=== PATIENT | male | born 1995 | race Two or more races ===

== ENCOUNTER 2024-10-03 03:03 | Inpatient (IN) | payer MEDICAID, OTHER ==
[~2024-10-03] VITALS: Ht 185.4 cm; Wt 124.7 kg
--- NOTE | 2024-10-03 03:18 | ED.PDOC ---
General HPI Comments PATIENT C/O RECTAL PAIN/SWELLING. STATES HE THINKS HE HAS A HEMORRHOID. HAS BEEN CONSTIPATED, WAS PUSHING ON THURSDAY AND FELT IT "POP" OUT. DENIES ANY BLEEDING. HAS BEEN USING PREPARATION H WITHOUT IMPROVEMENT OF SYMPTOMS. DENIES RECTAL BLEEDING, FEVER, CHILLS, NAUSEA, VOMITING, CHEST PAIN, SHORTNESS OF BREATH OR DIZZINESS. Time Seen by MD: 03:10 Reviewed notes: Nurses Notes, Medications, Allergies Allergies: Coded Allergies: NO KNOWN ALLERGIES (Unverified , 10/03/24) Information Source: Patient Past Medical History PAST MEDICAL HISTORY: Denies Surgical History: Denies all surgeries Family History Family History: Reviewed,noncontributory to illness Social History Smoker: Non-Smoker Alcohol: Denies ETOH Use Drugs: Denies Drug Use Constitutional: denies: chills, diaphoresis, fatigue, fever, malaise, sweats, weakness, others EENTM: denies: blurred vision, double vision, ear bleeding, ear discharge, ear drainage, ear pain, ear ringing, eye pain, eye redness, hearing loss, mouth pain, mouth swelling, nasal discharge, nose bleeding, nose congestion, nose pain, photophobia, tearing, throat pain, throat swelling, voice changes, others Respiratory: denies: cough, hemoptysis, orthopnea, SOB at rest, shortness of breath, SOB with excertion, stridor, wheezing, others Cardiovascular: denies: chest pain, dizzy spells, diaphoresis, Dyspnea on exertion, edema, irregular heart beat, left arm pain, lightheadedness, palpitations, PND, syncope, others Gastrointestinal: reports: constipated, rectal pain; denies: abdomen distended, abdominal pain, blood streaked bowels, diarrhea, dysphagia, difficulty swallowing, hematemesis, melena, nausea, poor appetite, poor fluid intake, rectal bleeding, vomiting, others Genitourinary: denies: burning, dysuria, flank pain, frequency, hematuria, incontinence, penile discharge, penile sore, pain, testicle pain, testicle swelling, urgency, others Neurological: denies: dizziness, fainting, headache, left sided numbness, left sided weakness, numbness, paresthesia, pre-existing deficit, right sided numbness, right sided weakness, seizure, speech problems, tingling, tremors, weakness, others Musculoskeletal: denies: back pain, gout, joint pain, joint swelling, muscle pain, muscle stiffness, neck pain, others Integumetry: denies: bruises, change in color, change in hair/nails, dryness, laceration, lesions, lumps, rash, wounds, others Allergic/Immunocompromised: denies: Difficulty Healing, Frequent Infections, Hives, Itching, others Hematologic/Lymphatic: denies: anemia, blood clots, easy bleeding, easy bruising, swollen glands, others Endocrine: denies: excessive hunger, excessive sweating, excessive thirst, excessive urination, flushing, intolerance to cold, intolerance to heat, unexplained weight gain, unexplained weight loss, others Psychiatric: denies: anxiety, bipolar disorder, depression, hopeless, panic disorder, schizophrenia, sleepless, suicidal, others Physical Exam General Appearance: No Apparent Distress, Normal HEENT: Pharynx Normal Neck: Full Range of Motion, Non-Tender Respiratory: Lungs Clear, No Respiratory Distress, Normal Breath Sounds Cardiovascular: No Murmur, Normal Peripheral Pulses, Regular Rate/Rhythm Breast Exam: Deferred Gastrointestinal: No Organomegaly, Non Tender, No Pulsatile Mass, Normal Bowel Sounds, Soft Genitalia: Deferred Pelvic: Deferred Rectal: Tenderness (MODERATE TENDERNESS OVER ABSCESS NO NOTED DRAINAGE OR BLEEDING TRACE ERYTHEMA WITHOUT STREAKING.) Extremities: No calf tenderness, Normal capillary refill, Normal inspection, Normal range of motion, Non-tender, No pedal edema Musculoskeletal : Apperance: Normal Neurologic: Alert, machinery mover II-XII nml as Tested, No Motor Deficits, Normal Affect, Normal Mood, No Sensory Deficits Cerebellar Function: Normal Reflexes: Normal Skin: Dry, Normal Color, Warm Lymphatic: No Adenopathy Was a procedure done? Was a procedure done?: No Differential Diagnosis Kidney stone (Female): N/A X-Ray, Labs, Meds, VS Vital Signs Date Time Temp Pulse Resp B/P (MAP) Pulse Ox O2 Delivery O2 Flow Rate FiO2 10/03/24 05:38 98.9 72 16 117/69 (85) 97 98.9 10/03/24 05:31 72 16 117/69 10/03/24 03:15 99.1 97 18 119/91 (100) 100 99.1 Lab Test 10/03/24 04:48 Range/Units White Blood Count 14.4 H 4.4-10.8 10^3/uL Red Blood Count 5.12 4.5-5.90 10^6/uL Hemoglobin 14.5 13.5-17.5 g/dL Hematocrit 41.7 41.0-53.0 % Mean Corpuscular Volume 81.5 80.0-100.0 fL Mean Corpuscular Hemoglobin 28.4 28.0-32.0 pg Mean Corpuscular Hemoglobin Concent 34.9 32.0-36.0 g/dL Red Cell Distribution Width 14.0 11.8-14.3 % Platelet Count 196 140-450 10^3/uL Mean Platelet Volume 8.0 6.9-10.8 fL Neutrophils (%) (Auto) 78.5 37.0-80.0 % Lymphocytes (%) (Auto) 13.3 10.0-50.0 % Monocytes (%) (Auto) 7.2 0.0-12.0 % Eosinophils (%) (Auto) 0.5 0.0-7.0 % Basophils (%) (Auto) 0.5 0.0-2.0 % Neutrophils # (Auto) 11.3 H 1.6-8.6 10 ^3/uL Lymphocytes # (Auto) 1.9 0.4-5.4 10 ^3/uL Monocytes # (Auto) 1.0 0-1.3 10 ^3/uL Eosinophils # (Auto) 0.1 0-0.8 10 ^3/uL Basophils # (Auto) 0.1 0-0.2 10 ^3/uL Nucleated Red Blood Cells 0.0 % Sodium Level 138 136-145 mmol/L Potassium Level 3.7 3.5-5.1 mmol/L Chloride Level 106 98-107 mmol/L Carbon Dioxide Level 25 20-31 mmol/L Anion Gap 7 5-15 Blood Urea Nitrogen 11 9-23 mg/dL Creatinine 1.02 0.700-1.30 mg/dL Glomerular Filtration Rate Calc 101 >90 mL/min BUN/Creatinine Ratio 10.8 10.0-20.0 Serum Glucose 107 H 74-106 mg/dL Calcium Level 9.3 8.7-10.4 mg/dL Total Bilirubin 0.7 0.2-1.0 mg/dL Aspartate Amino Transferase (AST) 19 13-40 U/L Alanine Aminotransferase (ALT) Pending Alkaline Phosphatase 72 46-116 U/L Total Protein 7.2 5.7-8.2 g/dL Albumin 4.6 3.2-4.8 g/dL Current Medications Medications (Trade) Dose Ordered Sig/Kaylah Route Start Time Stop Time Status Last Admin Morphine Sulfate 4 mg ONCE ONCE IV 10/03/24 05:30 10/03/24 05:31 DC 10/03/24 05:31 Metronidazole 100 ml @ 100 mls/hr ONCE ONCE IV 10/03/24 05:30 10/03/24 06:29 10/03/24 05:30 X-Ray, Labs, Meds, VS Comment IMAGING: /////CT ABD/PELVIS IMPRESSION: 1. Limited evaluation without intravenous and enteric contrast. Within this limitation no acute process identified. If there is continued concern for rectal mass or pathology, colonoscopy is strongly recommended. 2. Increased number of retroperitoneal and bilateral inguinal lymph nodes with a slightly enlarged left inguinal lymph node. Etiology is unclear and these may be reactive in etiology. Metastatic adenopathy not entirely excluded. 3. Hepatic steatosis. LABS: CBC WHITE COUNT [id number] MP WITHIN NORMAL LIMITS PENDING UA MEDICATIONS: MORPHINE 4 MG IV PUSH CIPRO 400 MG IV PIGGYBACK FLAGYL 500 MG IV PIGGYBACK PLAN: PLACED FOR HOSPITALIST FOR ADMISSION ORDERS FOR PAIN MANAGEMENT, LEUKOCYTOSIS, RECTAL ABSCESS, RETROPERITONEAL ADENOPATHY. GI CONSULT INCISION AND DRAINAGE, AND FURTHER GI WORKUP. Time of 1ST Reevaluation: 03:10 Reevaluation 1ST: Unchanged Time of 2ND Reevaluation: 05:16 Reevaluation 2ND: Unchanged Patient Education/Counseling: Diagnosis, Treatment, Prognosis, Need For Follow Up Family Education/Counseling: No Family Present SEPSIS Sepsis Screen Physician Orders Ct Ab Pel Wo Con-No Oral Or Iv (10/03/24 03:25) Comprehensive Metabolic Panel (10/03/24 05:09) Urinalysis (10/03/24 05:09) Ciprofloxacin 400mg/200ml (Cipro Iv) (10/03/24 05:30) Metronidazole 500mg/100ml (Flagyl 500mg/ (10/03/24 05:30) Sodium Chloride 0.9% (10/03/24 05:30) Vital Signs Date Time Temp Pulse Resp B/P (MAP) Pulse Ox O2 Delivery O2 Flow Rate FiO2 10/03/24 05:38 98.9 72 16 117/69 (85) 97 98.9 10/03/24 05:31 72 16 117/69 10/03/24 03:15 99.1 97 18 119/91 (100) 100 99.1 Laboratory Tests Test 10/03/24 04:48 White Blood Count 14.4 10^3/uL (4.4-10.8) H Medications Medications Dose Ordered Sig/Kaylah Route Start Time Stop Time Status Last Admin Dose Admin Metronidazole 100 ml @ 100 mls/hr ONCE ONCE IV 10/03/24 05:30 10/03/24 06:29 10/03/24 05:30 Morphine Sulfate 4 mg ONCE ONCE IV 10/03/24 05:30 10/03/24 05:31 DC 10/03/24 05:31 Departure 1 Departure Time of Disposition: 05:12 Impression: Primary Impression: Perineal abscess Additional Impressions: Leukocytosis Qualified Codes: D72.829 - Elevated white blood cell count, unspecified Retroperitoneal lymphadenopathy Disposition: ADMITTED INPATIENT Condition: Stable Discharged With: Self Critical Care Note Critical Care Time?: No Stability Stability form required: RUBEN Mendiola Oct 03, 2024 03:17
[2024-10-03] MEDS ORDERED: HYDROCORTISONE ACET 25 MG RECTAL SUPP PR ONE (03:30)
[2024-10-03] MEDS ORDERED: cefTRIAXone SOD 1,000 MG VL IM ONE (03:30)
[2024-10-03] MEDS ORDERED: KETOROLAC TROMETH 60MG/2ML VIAL IM ONE (03:30)
--- NOTE | 2024-10-03 04:24 | DVH ---
Exam: CT CT AB PEL WO CON-NO ORAL OR IV History: RECTAL PAIN/MASS Comparison Study: None Technique: Multidetector spiral CT of the abdomen and pelvis was performed from lung bases to pubic s ymphysis. Imaging was performed without intravenous contrast. Coronal and sagittal multiplanar reform ats were obtained from the axial data set by the technologist. Radiation Dose : 1. Abdomen/Pelvis: CTDIvol 26.47 mGy, DLP 1482.48 mGy*cm. Findings: Evaluation of vasculature and solid organs is limited due to lack of intravenous contrast use. Lung Bases: Lung bases are clear. Visualized portions of the heart and pericardium are unremarkable. Liver: The liver is normal in size. No focal lesions. Diffusely hypoattenuating liver parenchyma con sistent with hepatic steatosis. Gallbladder and Biliary Tree: The gallbladder is unremarkable. No intrahepatic or extrahepatic biliar y ductal dilatation. Spleen: Unremarkable Pancreas: The pancreas is grossly unremarkable. Adrenal Glands: Unremarkable Kidneys: Kidneys are unremarkable without calculi or hydronephrosis. GI tract: The stomach is grossly normal in appearance. No evidence of small bowel wall thickening or abnormal dilatation to suggest bowel obstruction. The colon appears to be unremarkable as assessed on unenhanced CT. The appendix is visualized and is normal. Peritoneum/mesentery/retroperitoneum. No evidence of free intraperitoneal air. No ascites. Lymph node s: Subcentimeter retroperitoneal lymph nodes. Mildly prominent left inguinal lymph node measuring 10 mm in short axis. Abdominal Wall: Unremarkable. Vasculature: The visualized abdominal aorta is normal in size and caliber. Evaluation of abdominal a nd pelvic vessels is limited due to lack of intravenous contrast. Urinary Bladder: Grossly unremarkable for degree of distention. Pelvic Organs: Unremarkable. Musculoskeletal: No aggressive focal bony lesions, acute fractures or dislocation. IMPRESSION: 1. Limited evaluation without intravenous and enteric contrast. Within this limitation no acute proc ess identified. If there is continued concern for rectal mass or pathology, colonoscopy is strongly recommended. 2. Increased number of retroperitoneal and bilateral inguinal lymph nodes with a slightly enlarged le ft inguinal lymph node. Etiology is unclear and these may be reactive in etiology. Metastatic adenop athy not entirely excluded. 3. Hepatic steatosis.
[2024-10-03 04:59] LABS: Hematocrit 41.7 % (41.0-53.0); Hemoglobin 14.5 g/dL (13.5-17.5); Mean Corpuscular Hemoglobin 28.4 pg (28.0-32.0); Mean Corpuscular Volume 81.5 fL (80.0-100.0); Nucleated Red Blood Cells % 0.0 %
[2024-10-03 05:25] LABS: Albumin 4.6 g/dL (3.2-4.8); Alkaline Phosphatase 72 U/L (46-116); Anion Gap 7 (5-15); BUN/Creatinine Ratio 10.8 (10.0-20.0); Blood Urea Nitrogen 11 mg/dL (9-23); Calcium 9.3 mg/dL (8.7-10.4); Carbon Dioxide 25 mmol/L (20-31); Chloride 106 mmol/L (98-107); Potassium 3.7 mmol/L (3.5-5.1); Sodium 138 mmol/L (136-145); Total Protein 7.2 g/dL (5.7-8.2)
[2024-10-03 05:26] LABS: Bilirubin, Total 0.7 mg/dL (0.2-1.0)
[2024-10-03 05:28] LABS: Glucose 107 mg/dL (74-106)
[2024-10-03] MEDS: SODIUM CHLORIDE 0.9% 1,000 ML IV ONE (05:30)
[2024-10-03] MEDS: MORPHINE SULFATE 4 MG/ML SYR/VIAL IV ONE (05:31)
[2024-10-03 05:43] VITALS: PULSE 72; RESP 16; O2SAT 97
[2024-10-03 05:55] LABS: Alanine Aminotransferase 24 U/L (7-40)
[2024-10-03] MEDS: CIPROFLOXACIN 400MG/200ML 200 ML IV ONE (06:16)
[2024-10-03] MEDS ORDERED: ACETAMINOPHEN 325 MG TAB PO PRN (09:00)
[2024-10-03] MEDS ORDERED: DOCUSATE SOD 100 MG CAP PO PRN (09:00)
[2024-10-03] MEDS ORDERED: ONDANSETRON HCL 4 MG/2 ML VIAL IV PRN (09:00)
[2024-10-03] MEDS ORDERED: HYDROcodone-ACET 5/325MG TAB PO PRN (09:00)
[2024-10-03 09:17] VITALS: BP 119/64; PULSE 56; RESP 16; TEMP 98.2; O2SAT 96
--- NOTE | 2024-10-03 09:34 | DVHHP2 ---
History of Present Illness Reason for Visit: rectal pain History of Present Illness Maurice Guthrie Jr is a 29-year-old male with no significant past medial history who came to the hospital due to rectal pain. Patient states he has been constipated and straining to go to the bathroom. A couple days ago he heard a pop, it was painful, and thought he had a hemorrhoid. He was treating it with over the counter cream without any improvement so he came to the hospital. On exam the ER provider diagnosed him with a rectal abscess, not hemorrhoid. On my exam he states that he thinks it just opened up. States he can feel something draining. On exam the abscess has opened and is draining. He states he pain has improved now as well. Past Surgical History: Other (cyst removal) Smoke: <1 pack per day ALCOHOL: occassional Drugs: Marijuana Lives: with Family Domestic Violence: Neg Review of Systems Constitutional: No: Fever, Chills, Sweats, Weakness, Malaise, Other Eyes: No: Pain, Vision change, Conjunctivae inflammation, Eyelid inflammation, Other, Redness ENT: No: Ear pain, Ear discharge, Nose pain, Nose discharge, Nose congestion, Mouth pain, Mouth swelling, Throat pain, Throat swelling, Other Respiratory: No: Cough, Dry, Shortness of breath, SOB with excertion, Wheezing, Hemoptysis, Pleuritic Pain, Sputum, Wheezing, Other Cardiovascular: No: Chest Pain, Palpitations, Orthopnea, Paroxysmal Noc. Dyspnea, Edema, Lt Headedness, Other Gastrointestinal: No: Nausea, Vomiting, Abdominal Pain, Diarrhea, Constipation, Melena, Hematochezia, Other Genitourinary: No Dysuria, No Frequency, No Incontinence, No Hematuria, No Retention, No Other Musculoskeletal: No: other, neck pain, shoulder pain, arm pain, back pain, hand pain, leg pain, foot pain Skin: Other (Perineal abscess, rectal pain); No: Rash, Lesions, Jaundice, Bruising Neurological: No: Weakness, Numbness, Incoordination, Change in speech, Confusion, Seizures, Other Allergies: Coded Allergies: NO KNOWN ALLERGIES (Unverified , 10/03/24) Exam Vital Signs Vital Signs Date Time Temp Pulse Resp B/P (MAP) Pulse Ox O2 Delivery O2 Flow Rate FiO2 10/03/24 08:39 98.1 71 18 132/80 (97) 98 98.1 10/03/24 05:43 Room Air* 0 21 General Appearance: Alert, Oriented X3, Cooperative, mild distress HEENT: Atraumatic, PERRLA, Mucous membr. moist/pink Respiratory: Clear to auscultation, Normal air movement Cardiovascular: Regular rate, Normal S1, Normal S2 Abdominal: Normal bowel sounds, Soft, No tenderness Extremities: No clubbing, No cyanosis, No edema, Normal pulses Skin: No rashes, No breakdown, No significant lesion Neuro: Normal gait, Normal speech, Strength at 5/5 X4 ext, Normal tone Psych/Mental Status: Mental status NL, Mood NL Labs/Xrays Labs Test 10/03/24 04:48 Range/Units White Blood Count 14.4 H 4.4-10.8 10^3/uL Red Blood Count 5.12 4.5-5.90 10^6/uL Hemoglobin 14.5 13.5-17.5 g/dL Hematocrit 41.7 41.0-53.0 % Mean Corpuscular Volume 81.5 80.0-100.0 fL Mean Corpuscular Hemoglobin 28.4 28.0-32.0 pg Mean Corpuscular Hemoglobin Concent 34.9 32.0-36.0 g/dL Red Cell Distribution Width 14.0 11.8-14.3 % Platelet Count 196 140-450 10^3/uL Mean Platelet Volume 8.0 6.9-10.8 fL Neutrophils (%) (Auto) 78.5 37.0-80.0 % Lymphocytes (%) (Auto) 13.3 10.0-50.0 % Monocytes (%) (Auto) 7.2 0.0-12.0 % Eosinophils (%) (Auto) 0.5 0.0-7.0 % Basophils (%) (Auto) 0.5 0.0-2.0 % Neutrophils # (Auto) 11.3 H 1.6-8.6 10 ^3/uL Lymphocytes # (Auto) 1.9 0.4-5.4 10 ^3/uL Monocytes # (Auto) 1.0 0-1.3 10 ^3/uL Eosinophils # (Auto) 0.1 0-0.8 10 ^3/uL Basophils # (Auto) 0.1 0-0.2 10 ^3/uL Nucleated Red Blood Cells 0.0 % Sodium Level 138 136-145 mmol/L Potassium Level 3.7 3.5-5.1 mmol/L Chloride Level 106 98-107 mmol/L Carbon Dioxide Level 25 20-31 mmol/L Anion Gap 7 5-15 Blood Urea Nitrogen 11 9-23 mg/dL Creatinine 1.02 0.700-1.30 mg/dL Glomerular Filtration Rate Calc 101 >90 mL/min BUN/Creatinine Ratio 10.8 10.0-20.0 Serum Glucose 107 H 74-106 mg/dL Calcium Level 9.3 8.7-10.4 mg/dL Total Bilirubin 0.7 0.2-1.0 mg/dL Aspartate Amino Transferase (AST) 19 13-40 U/L Alanine Aminotransferase (ALT) 24 7-40 U/L Alkaline Phosphatase 72 46-116 U/L Total Protein 7.2 5.7-8.2 g/dL Albumin 4.6 3.2-4.8 g/dL Exam: CT CT AB PEL WO CON-NO ORAL OR IV Findings: Evaluation of vasculature and solid organs is limited due to lack of intravenous contrast use. Lung Bases: Lung bases are clear. Visualized portions of the heart and pericardium are unremarkable. Liver: The liver is normal in size. No focal lesions. Diffusely hypoattenuating liver parenchyma consistent with hepatic steatosis. Gallbladder and Biliary Tree: The gallbladder is unremarkable. No intrahepatic or extrahepatic biliary ductal dilatation. Spleen: Unremarkable Pancreas: The pancreas is grossly unremarkable. Adrenal Glands: Unremarkable Kidneys: Kidneys are unremarkable without calculi or hydronephrosis. GI tract: The stomach is grossly normal in appearance. No evidence of small myles wel wall thickening or abnormal dilatation to suggest bowel obstruction. The colon appears to be unremarkable as assessed on unenhanced CT. The appendix is visualized and is normal. Peritoneum/mesentery/retroperitoneum. No evidence of free intraperitoneal air. No ascites. Lymph nodes: Subcentimeter retroperitoneal lymph nodes. Mildly prominent left inguinal lymph node measuring 10 mm in short axis. Abdominal Wall: Unremarkable. Vasculature: The visualized abdominal aorta is normal in size and caliber. E valuation of abdominal and pelvic vessels is limited due to lack of intravenous contrast. Urinary Bladder: Grossly unremarkable for degree of distention. Pelvic Organs: Unremarkable. Musculoskeletal: No aggressive focal bony lesions, acute fractures or dislocation. IMPRESSION: 1. Limited evaluation without intravenous and enteric contrast. Within this limitation no acute process identified. If there is continued concern for rectal mass or pathology, colonoscopy is strongly recommended. 2. Increased number of retroperitoneal and bilateral inguinal lymph nodes with a slightly enlarged left inguinal lymph node. Etiology is unclear and these may be reactive in etiology. Metastatic adenopathy not entirely excluded. 3. Hepatic steatosis. Assessment/Plan Assessment/Plan Assessment: Perineal abscess, Leukocytosis, Plan: Admit to Med-Surg, IV hydration, IV antibiotics, Consider surgical consult if symptoms persist, UA, Plan discussed with: Patient My Orders Orders - SOFIA RAHMAN Procedure Category Date Status Time Admit ADMIT 10/03/24 Transmitted 08:56 Code Status CODE 10/03/24 Transmitted 08:56 Hydrocodone-Acet PHA 10/03/24 Transmitted 5/325mg Tab ([place] 09:00 Ondansetron Hcl PHA 10/03/24 Transmitted (Zofran) 09:00 Docusate Sodium PHA 10/03/24 Transmitted Capsule ([place] 09:00 Complete Blood Count LAB 10/04/24 Verified 04:00 Comprehensive LAB 10/04/24 Verified Metabolic Panel 04:00 Condition: Serious ALBINA 10/03/24 Transmitted 08:56 Acetaminophen Tablet PHA 10/03/24 Transmitted (Tylenol Tablet) 09:00 Metronidazole Ivpb PHA 10/03/24 Transmitted Flagyl 14:00 Clindamycin Ivpb PHA 10/03/24 Verified Cleocin 14:00 Date of Service: Oct 03, 2024 Billing Provider: SOFIA RAHMAN Common Visit Codes: [id number] INP/OBS CARE (MOD) SOFIA RAHMAN Oct 03, 2024 09:34
[2024-10-03 13:00] VITALS: BP 95/49; PULSE 54; RESP 16; TEMP 97.9; O2SAT 99
[2024-10-03] MEDS ORDERED: CLINDAMYCIN 600MG IV 50 ML IV SCH (14:00)
[2024-10-03] MEDS ORDERED: CIPROFLOXACIN 400MG/200ML 200 ML IV SCH (18:00)
== END 2024-10-03 18:09 | disposition left against medical advice (07) | DRG 383 ==
LOC: ER 03:03 → OVERFLOW 08:56
PROVIDERS: ADMIT Nurse Practitioner Family; ATTEND Nurse Practitioner Family
DX: L02.215 Cutaneous abscess of perineum (principal); D72.829 Elevated white blood cell count, unspecified; K59.00 Constipation, unspecified; R59.0 Localized enlarged lymph nodes; Z87.891 Personal history of nicotine dependence; Z53.21 Procedure and treatment not carried out due to patient leaving prior to being seen by health care provider
CPT/HCPCS: 36415; 74176; 80053; 85025; 96365; 96375; G0378; J3490

== ENCOUNTER 2024-12-26 02:18 | Emergency (ER) | payer MEDICAID ==
[~2024-12-26] VITALS: Ht 185.4 cm; Wt 124.1 kg
[2024-12-26 02:20] VITALS: BP 143/84; PULSE 68; RESP 14; TEMP 98.8; O2SAT 99
--- NOTE | 2024-12-26 02:54 | ED.PDOC ---
Eye-HPI HPI Comments 29 y/o obese M presents with c/c of right upper tooth pain for 1x day. Denies fever, chills, nausea, vomiting, difficulty breathing or difficulty swallowing or throat swelling. Chief Complaint: Tooth Pain Time Seen by MD: 02:50 Reviewed Notes: Nurses Notes, Medications, Allergies Allergies: Coded Allergies: NO KNOWN ALLERGIES (Unverified , 10/03/24) Information Source: Patient Mode of Arrival: Ambulatory Timing: Days Duration: Since onset Prehospital treatment: None Quality: Pain Past Medical History PAST MEDICAL HISTORY: Denies Surgical History: Denies all surgeries Family History Family History: Reviewed,noncontributory to illness Social History Smoker: Non-Smoker Alcohol: Denies ETOH Use Drugs: Denies Drug Use Lives In: Home All Other Systems: Reviewed and Negative (Comprehensive review of systems are negative unless stated in HPI) Physical Exam General Appearance: No Apparent Distress, Normal HEENT: Pharynx Normal, TMs Normal, Other (moderate decay tooth # 18 w/right cheek edema) Neck: Full Range of Motion, Non-Tender Respiratory: Lungs Clear, No Respiratory Distress, Normal Breath Sounds Cardiovascular: JVD, No Edema, No Murmur, Normal Peripheral Pulses, Regular Rate/Rhythm Breast Exam: Deferred Gastrointestinal: Non Tender, Soft Genitalia: Deferred Pelvic: Deferred Rectal: Deferred Extremities: Normal capillary refill, Normal range of motion Musculoskeletal : Apperance: Normal Neurologic: Alert, No Motor Deficits, Normal Affect, Normal Mood, No Sensory Deficits Cerebellar Function: Normal Reflexes: NOT DONE Skin: Dry, Normal Color, Warm Lymphatic: No Adenopathy Was a procedure done? Was a procedure done?: No EENT DIFF Eye: N/A Ear: N/A Nose: N/A Mouth: N/A Sore Throat: Pharyngitis, Streptococcal, Viral Pharyngitis, Other (dental mishel, dental abscess) X-Ray, Labs, Meds, VS Vital Signs Date Time Temp Pulse Resp B/P (MAP) Pulse Ox O2 Delivery O2 Flow Rate FiO2 12/26/24 02:20 98.8 68 14 143/84 99 98.8 X-Ray, Labs, Meds, VS Comment Patient given Toradol 60 mg IM, Rocephin 1 g IM, [place] 5 mg p.o. and Hurricaine spray. Script trial of antibiotics and anti-inflammatory advised to take medication as prescribed side effects discussed. Advised to follow up with dental for resolution. ER return precautions given patient indicates understanding and agrees with discharge plan of care Time of 1ST Reevaluation: 03:10 Reevaluation 1ST: Unchanged Time of 2ND Reevaluation: 03:08 Reevaluation 2ND: Improved Patient Education/Counseling: Treatment, Need For Follow Up Family Education/Counseling: No Family Present SEPSIS Sepsis Screen Date sepsis recognized/suspect: Dec 26, 2024 Time Sepsis recognized/suspect: 219 Recent Procedure: No On Antibiotic Therapy: No Respiratory Rate >20: No Heart Rate >90: No Temp<36 C (96.8 F) or >38.3 C: No SBP <90 or MAP <65 mmHG: No New Acute Mental Status Change: No Is the patient on CPAP, BIPAP,: No Vital Signs Date Time Temp Pulse Resp B/P (MAP) Pulse Ox O2 Delivery O2 Flow Rate FiO2 12/26/24 02:20 98.8 68 14 143/84 99 98.8 Departure 1 Departure Time of Disposition: 03:07 Impression: Primary Impression: Dental infection Disposition: 01 HOME / SELF CARE / HOMELESS Condition: Stable e-Prescriptions Ibuprofen (Ibuprofen) 800 Mg Tab 800 MG PO Q8HP PRN for 5 Days, #15 TAB Prov: RUBEN FARAH 12/26/24 Clindamycin Hcl (Clindamycin Hcl) 300 Mg Cap 300 MG PO QID for 7 Days, #28 CAP Prov: RUBEN FARAH 12/26/24 Discharged With: Self Critical Care Note Critical Care Time?: No Stability Stability form required: No Heart Score Heart Score: Heart Score Response (Comments) Value History N/A 0 EKG N/A 0 Age N/A 0 Risk Factors N/A 0 Troponin N/A 0 Total 0 I personally scribed for ER ([email or web address]) on 12/26/24 at 02:54. Electronically submitted by John Aguillon ([email or web address]). ER Dec 26, 2024 02:54 RUBEN FARAH Dec 26, 2024 03:04
[2024-12-26] MEDS ORDERED: IBUP-1456 PO (03:08)
[2024-12-26] MEDS ORDERED: CLIN1CAP70 PO (03:08)
[2024-12-26] MEDS: cefTRIAXone SOD 1,000 MG VL IM ONE (03:35)
[2024-12-26] MEDS: KETOROLAC TROMETH 60MG/2ML VIAL IM ONE (03:35)
[2024-12-26] MEDS: HYDROcodone-ACET 5/325MG TAB PO ONE (03:36)
[2024-12-26] MEDS: BENZOCAINE (DENTAL) 20 % SPRAY 60ML MT ONE (03:36)
== END 2024-12-26 03:09 | disposition home or self-care (01) ==
LOC: ER 02:18
DX: K04.7 Periapical abscess without sinus (principal); Z79.899 Other long term (current) drug therapy
CPT/HCPCS: 96372; 99284; J0696; J1885